=== PATIENT | female | born 1950 | race Caucasian/White ===

== ENCOUNTER 2017-11-20 06:48 | Inpatient (IN) | payer MEDICARE, OTHER ==
[2017-11-20 08:17] LABS: ADD MAN DIFF? NO
[2017-11-20 08:18] LABS: BASOPHIL # 0.1 10^3/ul (0.0-0.1); BASOPHILS % 0.8 % (0.0-2.0); EOSINOPHILS # 0.1 10^3/ul (0.0-0.5); EOSINOPHILS % 1.7 % (0.0-7.0); HEMATOCRIT 42.4 % (37.0-47.0); HEMOGLOBIN 14.2 g/dl (12.0-16.0); LYMPHOCYTES # 3.4 10^3/ul (0.8-2.9); MEAN CORPUSCULAR HEMOGLOBIN 28.2 pg (29.0-33.0); MEAN CORPUSCULAR HGB CONC 33.5 g/dl (32.0-37.0); MEAN CORPUSCULAR VOLUME 84.1 fl (82.0-101.0); MEAN PLATELET VOLUME 11.1 fl (7.4-10.4); MONOCYTE # 0.5 10^3/ul (0.3-0.9); MONOCYTES % 6.8 % (0.0-11.0); NEUTROPHILS % 42.4 % (39.0-77.0); PLATELET COUNT 268 10^3/UL (140-415); RED BLOOD COUNT 5.04 10^6/ul (4.20-5.40); RED CELL DISTRIBUTION WIDTH 13.7 % (11.5-14.5)
[2017-11-20 08:18] LABS: WHITE BLOOD COUNT 7.2 10^3/ul (4.8-10.8)
[2017-11-20 08:27] LABS: ANION GAP 19 (8-16); BLOOD UREA NITROGEN 13 mg/dl (7-20); CALCIUM 9.9 mg/dl (8.4-10.2); CARBON DIOXIDE 31 mmol/L (21-31); CHLORIDE 102 mmol/L (97-110); CHOL/HDL RATIO 2.5 RATIO; CHOLESTEROL 183 mg/dl (100-200); CREATININE 0.72 mg/dl (0.44-1.00); GLUCOSE 140 mg/dl (70-220); HDL CHOLESTEROL 72 mg/dl (35-98); LDL CHOLESTEROL,CALCULATED 82 mg/dl; POTASSIUM 3.2 mmol/L (3.5-5.1); SODIUM 149 mmol/L (135-144); TRIGLYCERIDES 143 mg/dl (0-149)
[2017-11-20 08:31] LABS: INR 0.93; PROTIME 12.5 Sec (11.9-14.9)
[2017-11-20 08:32] LABS: PARTIAL THROMBOPLASTIN TIME 29.2 Sec (25.0-35.0)
[2017-11-20 08:42] LABS: TROPONIN-I < 0.012 ng/ml (0.00-0.12)
[2017-11-20 09:19] LABS: HEMOGLOBIN A1C 6.3 % (0-5.9)
[2017-11-20] MEDS ORDERED: ACETAMINOPHEN 325 MG TAB PO (10:00)
[2017-11-20] MEDS ORDERED: ONDANSETRON 4 MG INJ IV ×2 (10:00→16:30)
[2017-11-20] MEDS: ASPIRIN 325 MG TAB PO (10:46)
[2017-11-20] MEDS: POTASSIUM CHLORIDE (SR) 20 MEQ TAB PO (10:47)
[2017-11-20 12:10] LABS: ADD UMIC YES; UR ASCORBIC ACID NEGATIVE (NEGATIVE); UR BILIRUBIN (Dip) NEGATIVE (NEGATIVE); UR BLOOD (Dip) NEGATIVE (NEGATIVE); UR CLARITY SLIGHTLY CLOUDY (CLEAR); UR COLOR YELLOW (YELLOW); UR GLUCOSE (Dip) NEGATIVE (NEGATIVE); UR KETONES (Dip) NEGATIVE (NEGATIVE); UR LEUKOCYTE ESTERASE (Dip) TRACE Leu/ul (NEGATIVE); UR MUCUS FEW /HPF (NONE SEEN); UR NITRITE (Dip) NEGATIVE (NEGATIVE); UR RBC 1 /HPF (0-5); UR SPECIFIC GRAVITY (Dip) 1.008 (1.003-1.030); UR TOTAL PROTEIN (Dip) NEGATIVE (NEGATIVE); UR UROBILINOGEN (Dip) NEGATIVE (NEGATIVE); UR WBC 3 /HPF (0-5)
[2017-11-20 12:25] LABS: AMPHETAMINE/METHAMPHETAMINE Negative (NEGATIVE); BARBITURATES Negative (NEGATIVE); BENZODIAZEPINES Negative (NEGATIVE); CANNABINOIDS Negative (NEGATIVE); COCAINE Negative (NEGATIVE); OPIATES Negative (NEGATIVE)
[2017-11-20] MEDS ORDERED: morphine 2 MG INJ IV (16:30)
[2017-11-20] MEDS ORDERED: ZOLPIDEM 5 MG TAB PO (16:30)
[2017-11-20] MEDS ORDERED: NACL 0.9% 3 ML SYG IV (16:30)
[2017-11-20] MEDS ORDERED: DOCUSATE SODIUM 100 MG CAP PO (16:30)
[2017-11-20] MEDS ORDERED: HYDROCODONE/APAP (5/325) TAB PO (16:30)
[2017-11-20] MEDS: SOD CHLORIDE 0.9% 1,000 ML IV (16:45)
[2017-11-20] MEDS: ACETAMINOPHEN 325 MG TAB PO (16:47)
[2017-11-20] MEDS: ATORVASTATIN 20 MG TAB PO (21:29)
[2017-11-20] MEDS: CYCLOSPORINE 0.05% OPH DROPERETTE BOTH EYES (21:30)
[2017-11-21 00:29] LABS: ADD MAN DIFF? NO
[2017-11-21 00:30] LABS: WHITE BLOOD COUNT 7.6 10^3/ul (4.8-10.8)
[2017-11-21 00:30] LABS: BASOPHILS % 0.5 % (0.0-2.0); EOSINOPHILS # 0.1 10^3/ul (0.0-0.5); EOSINOPHILS % 1.1 % (0.0-7.0); HEMATOCRIT 38.9 % (37.0-47.0); HEMOGLOBIN 12.9 g/dl (12.0-16.0); LYMPHOCYTES # 3.3 10^3/ul (0.8-2.9); LYMPHOCYTES % 43.2 % (15.0-51.0); MEAN CORPUSCULAR HEMOGLOBIN 28.3 pg (29.0-33.0); MEAN CORPUSCULAR HGB CONC 33.2 g/dl (32.0-37.0); MEAN CORPUSCULAR VOLUME 85.3 fl (82.0-101.0); MEAN PLATELET VOLUME 10.5 fl (7.4-10.4); MONOCYTE # 0.7 10^3/ul (0.3-0.9); MONOCYTES % 9.6 % (0.0-11.0); NEUTROPHIL # 3.4 10^3/ul (1.6-7.5); NEUTROPHILS % 45.5 % (39.0-77.0); PLATELET COUNT 245 10^3/UL (140-415); RED BLOOD COUNT 4.56 10^6/ul (4.20-5.40); RED CELL DISTRIBUTION WIDTH 14.1 % (11.5-14.5)
[2017-11-21 00:55] LABS: ANION GAP 16 (8-16); BLOOD UREA NITROGEN 13 mg/dl (7-20); CALCIUM 9.2 mg/dl (8.4-10.2); CARBON DIOXIDE 29 mmol/L (21-31); CHLORIDE 107 mmol/L (97-110); CREATININE 0.65 mg/dl (0.44-1.00); GLUCOSE 98 mg/dl (70-220); MAGNESIUM 2.2 mg/dl (1.7-2.5); POTASSIUM 4.2 mmol/L (3.5-5.1); SODIUM 148 mmol/L (135-144)
[2017-11-21 00:55] LABS: PHOSPHORUS 3.5 mg/dl (2.5-4.9)
[2017-11-21] MEDS: SOD CHLORIDE 0.9% 1,000 ML IV (02:01)
[2017-11-21 05:23] LABS: ADD MAN DIFF? NO
[2017-11-21 05:31] LABS: BASOPHIL # 0.1 10^3/ul (0.0-0.1); BASOPHILS % 0.7 % (0.0-2.0); EOSINOPHILS # 0.1 10^3/ul (0.0-0.5); EOSINOPHILS % 1.3 % (0.0-7.0); HEMATOCRIT 39.8 % (37.0-47.0); HEMOGLOBIN 13.2 g/dl (12.0-16.0); LYMPHOCYTES # 3.3 10^3/ul (0.8-2.9); LYMPHOCYTES % 47.2 % (15.0-51.0); MEAN CORPUSCULAR HEMOGLOBIN 28.3 pg (29.0-33.0); MEAN CORPUSCULAR HGB CONC 33.2 g/dl (32.0-37.0); MEAN CORPUSCULAR VOLUME 85.4 fl (82.0-101.0); MONOCYTE # 0.6 10^3/ul (0.3-0.9); NEUTROPHILS % 42.7 % (39.0-77.0); PLATELET COUNT 263 10^3/UL (140-415); RED BLOOD COUNT 4.66 10^6/ul (4.20-5.40)
[2017-11-21 05:55] LABS: HEMOGLOBIN A1C 6.3 % (0-5.9)
[2017-11-21 06:04] LABS: ANION GAP 14 (8-16); BLOOD UREA NITROGEN 15 mg/dl (7-20); CALCIUM 9.4 mg/dl (8.4-10.2); CARBON DIOXIDE 28 mmol/L (21-31); CHLORIDE 110 mmol/L (97-110); CHOL/HDL RATIO 2.7 RATIO; CHOLESTEROL 182 mg/dl (100-200); CREATININE 0.67 mg/dl (0.44-1.00); GLUCOSE 97 mg/dl (70-220); HDL CHOLESTEROL 67 mg/dl (35-98); LDL CHOLESTEROL,CALCULATED 96 mg/dl; MAGNESIUM 2.3 mg/dl (1.7-2.5); PHOSPHORUS 3.2 mg/dl (2.5-4.9); POTASSIUM 4.2 mmol/L (3.5-5.1); SODIUM 148 mmol/L (135-144); TRIGLYCERIDES 96 mg/dl (0-149)
[2017-11-21 06:11] LABS: FREE THYROXINE INDEX (Calc) 3.64 ug/ml (0.65-3.89); T3 UPTAKE 30.1 % (23.5-40.5); T4 (THYROXINE) 12.1 ug/dl (5.5-11.0)
[2017-11-21] MEDS: ASPIRIN (EC) 81 MG TAB PO (08:02)
[2017-11-21] MEDS: CYCLOSPORINE 0.05% OPH DROPERETTE BOTH EYES (08:03)
== END 2017-11-21 17:44 | disposition home health service (06) | DRG 103 ==
LOC: E/R 06:48 → MS3 09:52
DX: G43.109 Migraine with aura, not intractable, without status migrainosus (principal); I95.9 Hypotension, unspecified; R42 Dizziness and giddiness; E86.0 Dehydration; I10 Essential (primary) hypertension; E87.6 Hypokalemia; R73.03 Prediabetes; E78.5 Hyperlipidemia, unspecified
CPT/HCPCS: 36415; 70450; 71045; 80048; 80061; 80307; 81001; 82962; 83036; 83735; 84100; 84436; 84479; 84484; 85025; 85610; 85730; 93005; 93306; 93880; 97161; 99285-25

== ENCOUNTER 2019-02-07 09:33 | Inpatient (IN) | payer OTHER, MEDICARE ==
[2019-02-07 11:05] LABS: ADD MAN DIFF? NO
[2019-02-07 11:06] LABS: BASOPHILS % 0.5 % (0.0-2.0); EOSINOPHILS # 0.1 10^3/ul (0.0-0.5); EOSINOPHILS % 0.7 % (0.0-7.0); HEMATOCRIT 42.4 % (37.0-47.0); HEMOGLOBIN 13.6 g/dl (12.0-16.0); LYMPHOCYTES # 2.1 10^3/ul (0.8-2.9); LYMPHOCYTES % 29.2 % (15.0-51.0); MEAN CORPUSCULAR HEMOGLOBIN 28.3 pg (29.0-33.0); MEAN CORPUSCULAR HGB CONC 32.1 g/dl (32.0-37.0); MEAN CORPUSCULAR VOLUME 88.3 fl (82.0-101.0); MONOCYTE # 0.4 10^3/ul (0.3-0.9); MONOCYTES % 5.7 % (0.0-11.0); NEUTROPHIL # 4.7 10^3/ul (1.6-7.5); NEUTROPHILS % 63.6 % (39.0-77.0); PLATELET COUNT 237 10^3/UL (140-415); RED CELL DISTRIBUTION WIDTH 13.4 % (11.5-14.5)
[2019-02-07 11:06] LABS: WHITE BLOOD COUNT 7.3 10^3/ul (4.8-10.8)
[2019-02-07 11:23] LABS: ANION GAP 10 (5-13); BLOOD UREA NITROGEN 13 mg/dl (7-20); CALCIUM 9.5 mg/dl (8.4-10.2); CARBON DIOXIDE 29 mmol/L (21-31); CHLORIDE 105 mmol/L (97-110); CHOLESTEROL 188 mg/dl (100-200); Estimated GFR > 60 mL/min (>60); GLUCOSE 131 mg/dl (70-220); LDL CHOLESTEROL,CALCULATED 82 mg/dl; POTASSIUM 3.4 mmol/L (3.5-5.1); SODIUM 144 mmol/L (135-144); TRIGLYCERIDES 223 mg/dl (0-149)
[2019-02-07 11:26] LABS: HDL CHOLESTEROL 61 mg/dl (35-98); INR 0.89; PROTIME 12.2 Sec (11.9-14.9)
[2019-02-07 11:27] LABS: PARTIAL THROMBOPLASTIN TIME 26.9 Sec (23.0-35.0)
[2019-02-07] MEDS: MECLIZINE 12.5 MG TAB PO (11:30)
[2019-02-07 11:35] LABS: TROPONIN-I < 0.012 ng/ml (0.000-0.120)
[2019-02-07 11:44] LABS: ADD UMIC YES; UR ASCORBIC ACID 20 mg/dL (NEGATIVE); UR BACTERIA FEW /HPF (NONE SEEN); UR BILIRUBIN (Dip) NEGATIVE (NEGATIVE); UR BLOOD (Dip) NEGATIVE (NEGATIVE); UR CLARITY CLEAR (CLEAR); UR COLOR YELLOW (YELLOW); UR GLUCOSE (Dip) NEGATIVE (NEGATIVE); UR KETONES (Dip) NEGATIVE (NEGATIVE); UR LEUKOCYTE ESTERASE (Dip) TRACE Leu/ul (NEGATIVE); UR MUCUS FEW /HPF (NONE SEEN); UR NITRITE (Dip) NEGATIVE (NEGATIVE); UR RBC 1 /HPF (0-5); UR SPECIFIC GRAVITY (Dip) 1.013 (1.003-1.030); UR TOTAL PROTEIN (Dip) NEGATIVE (NEGATIVE); UR UROBILINOGEN (Dip) NEGATIVE (NEGATIVE); UR WBC 2 /HPF (0-5)
[2019-02-07] MEDS: ASPIRIN 81 MG TAB PO (12:04)
[2019-02-07 12:25] LABS: HEMOGLOBIN A1C 6.2 % (0-5.9)
[2019-02-07] MEDS ORDERED: ACETAMINOPHEN 325 MG TAB PO ×2 (13:00→15:00)
[2019-02-07] MEDS ORDERED: ONDANSETRON 4 MG INJ IV ×2 (13:00→15:00)
[2019-02-07 13:33] LABS: AMPHETAMINE/METHAMPHETAMINE Negative (NEGATIVE); BARBITURATES Negative (NEGATIVE); BENZODIAZEPINES Negative (NEGATIVE); CANNABINOIDS Negative (NEGATIVE); COCAINE Negative (NEGATIVE); OPIATES Negative (NEGATIVE)
[2019-02-07] MEDS ORDERED: HYDROCODONE/APAP (5/325) TAB PO (15:00)
[2019-02-07] MEDS ORDERED: NACL 0.9% 3 ML SYG IV (15:00)
[2019-02-07] MEDS: IOHEXOL 350MG/ML 50 ML BTL (15:03)
[2019-02-07] MEDS: IOHEXOL 100 ML (15:03)
[2019-02-07] MEDS: SOD CHLORIDE 0.9% 100 ML (15:04)
[2019-02-07] MEDS: POTASSIUM CHLORIDE (SR) 10 MEQ TAB PO (16:29)
[2019-02-07 18:09] LABS: FREE T4 (FREE THYROXINE) 1.08 ng/dl (0.78-2.44)
[2019-02-07] MEDS: ATORVASTATIN 10 MG TAB PO (20:17)
[2019-02-07] MEDS: CYCLOSPORINE 0.05% OPH DROPERETTE BOTH EYES (22:20)
[2019-02-08 08:02] LABS: ADD MAN DIFF? NO
[2019-02-08 08:09] LABS: WHITE BLOOD COUNT 6.8 10^3/ul (4.8-10.8)
[2019-02-08 08:09] LABS: BASOPHILS % 0.6 % (0.0-2.0); EOSINOPHILS # 0.1 10^3/ul (0.0-0.5); EOSINOPHILS % 1.9 % (0.0-7.0); HEMATOCRIT 40.6 % (37.0-47.0); HEMOGLOBIN 13.3 g/dl (12.0-16.0); LYMPHOCYTES % 44.6 % (15.0-51.0); MEAN CORPUSCULAR HEMOGLOBIN 29.2 pg (29.0-33.0); MEAN CORPUSCULAR HGB CONC 32.8 g/dl (32.0-37.0); MONOCYTE # 0.6 10^3/ul (0.3-0.9); MONOCYTES % 8.2 % (0.0-11.0); NEUTROPHILS % 44.3 % (39.0-77.0); PLATELET COUNT 229 10^3/UL (140-415); RED BLOOD COUNT 4.56 10^6/ul (4.20-5.40); RED CELL DISTRIBUTION WIDTH 13.8 % (11.5-14.5)
[2019-02-08 08:30] LABS: PHOSPHORUS 3.8 mg/dl (2.5-4.9)
[2019-02-08 08:30] LABS: MAGNESIUM 2.4 mg/dl (1.7-2.5)
[2019-02-08 08:31] LABS: ANION GAP 8 (5-13); BLOOD UREA NITROGEN 16 mg/dl (7-20); CALCIUM 9.6 mg/dl (8.4-10.2); CARBON DIOXIDE 27 mmol/L (21-31); CHLORIDE 107 mmol/L (97-110); CREATININE 0.83 mg/dl (0.44-1.00); Estimated GFR > 60 mL/min (>60); GLUCOSE 96 mg/dl (70-220); POTASSIUM 4.6 mmol/L (3.5-5.1); SODIUM 142 mmol/L (135-144)
[2019-02-08 08:37] LABS: TROPONIN-I < 0.012 ng/ml (0.000-0.120)
[2019-02-08] MEDS: ASPIRIN (EC) 81 MG TAB PO (08:41)
[2019-02-08] MEDS: CYCLOSPORINE 0.05% OPH DROPERETTE BOTH EYES (08:41)
[2019-02-08] MEDS: ENOXAPARIN 40 MG/0.4 ML SYG SC (09:03)
[2019-02-08] MEDS: MECLIZINE 12.5 MG TAB PO (12:27)
[2019-02-09] MEDS ORDERED: ATENOLOL 25 MG TAB PO (09:00)
[2019-02-09] MEDS ORDERED: AMLODIPINE 5 MG TAB PO (09:00)
== END 2019-02-08 16:10 | disposition home health service (06) | DRG 93 ==
LOC: E/R 09:33 → TEL 12:51
DX: R27.0 Ataxia, unspecified (principal); R51 Headache; I10 Essential (primary) hypertension; E78.5 Hyperlipidemia, unspecified; R42 Dizziness and giddiness; R73.03 Prediabetes
CPT/HCPCS: 36415; 70450; 70496; 70498; 70551; 71045; 80048; 80061; 80307; 81001; 83036; 83735; 84100; 84439; 84443; 84484; 85025; 85610; 85730; 92610; 93005; 93306; 97161; 99285-25